=== PATIENT | male | born 1990 | race Caucasian/White ===

== ENCOUNTER 2018-08-22 12:17 | Emergency (ER) | payer OTHER ==
[2018-08-22 12:34] VITALS: RESP 18; BMI 25.3
--- NOTE | 2018-08-22 13:00 | ED PDOC ---
Arrival/HPI - General Chief Complaint: Back Pain Time Seen by Provider: 08/22/18 12:47 Historian: Patient - History of Present Illness Narrative History of Present Illness (Text): 08/22/18 12:58 28 y/o male, no significant pmh, nkda, c/o lower back pain x 1 day. Pt. was lifting heavy box, suddenly feel the pain on the lower back, associated with stiffness, no numbness or tingling, no urinary or bowel incontinence or retention, no other medical or psychological complaints. Past Medical History - Provider Review Nursing Documentation Reviewed: Yes - Psychiatric Hx Substance Use: No Family/Social History - Physician Review Nursing Documentation Reviewed: Yes Family/Social History: Unknown Family HX Smoking Status: Heavy Smoker > 10 Cigarettes Daily Hx Alcohol Use: No Hx Substance Use: No Allergies/Home Meds Allergies/Adverse Reactions: Allergies No Known Allergies Allergy (Verified 08/22/18 12:29) Review of Systems - Review of Systems Constitutional: absent: Fatigue, Fevers Eyes: absent: Vision Changes ENT: absent: Hearing Changes Respiratory: absent: SOB, Cough Cardiovascular: absent: Chest Pain Gastrointestinal: absent: Abdominal Pain, Nausea, Vomiting Musculoskeletal: Back Pain, Myalgias. absent: Arthralgias, Neck Pain, Joint Swelling Skin: absent: Rash, Pruritis Neurological: absent: Headache, Dizziness Psychiatric: absent: Anxiety, Depression Physical Exam Vital Signs Reviewed: Yes Vital Signs Temp Pulse Resp BP Pulse Ox 08/22/18 12:28 97.8 F 98 H 18 110/74 98 Temperature: Afebrile Blood Pressure: Normal Pulse: Regular Respiratory Rate: Normal Appearance: Positive for: Well-Appearing, Non-Toxic Pain Distress: Severe Mental Status: Positive for: Alert and Oriented X 3 - Systems Exam Head: Present: Atraumatic, Normocephalic Pupils: Present: PERRL Extroacular Muscles: Present: EOMI Conjunctiva: Present: Normal Mouth: Present: Moist Mucous Membranes Neck: Present: Normal Range of Motion Respiratory/Chest: Present: Clear to Auscultation, Good Air Exchange. No: Respiratory Distress, Accessory Muscle Use Cardiovascular: Present: Regular Rate and Rhythm, Normal S1, S2. No: Murmurs Abdomen: No: Tenderness, Distention, Peritoneal Signs Back: Present: Normal Inspection, Other (LS spine: +ttp on the rt. paraspinal with no midline tenderness or step off, no rash, FROM without limitation , no saddling gait, sensation intact, motor 5/5, ) Upper Extremity: Present: Normal Inspection. No: Cyanosis, Edema Lower Extremity: Present: Normal Inspection. No: Edema Neurological: Present: GCS=15, CN II-XII Intact, Speech Normal, Motor Func Grossly Intact, Gait Normal, Memory Normal Skin: Present: Warm, Dry, Normal Color. No: Rashes Psychiatric: Present: Alert, Oriented x 3, Normal Insight, Normal Concentration Medical Decision Making ED Course and Treatment: 08/22/18 13:00 -LS spine -toradol and valium -observe and reassess 08/22/18 15:12 -LS spine: Unremarkable radiographs of the lumbar spine. -Pt. feels much better, neurologically intact, walking with normal gait and posture, no focal neurological deficits. -Discharge home with duexeis, flexeril, bed rest, follow up with your own pmd within 2 days, return to the ER for any new or worsening signs or symptoms. - RAD Interpretation Radiology Orders: 08/22/18 12:58 LS SPINE WITH OBL > 18 YRS OLD [RAD] Stat Date of service: 08/22/2018 PROCEDURE: Radiographs of the Lumbar Spine. HISTORY: lower back pain after heavy lifting COMPARISON: No prior. FINDINGS: BONES: Normal alignment. No listhesis. No fracture. DISC SPACES: Unremarkable. OTHER FINDINGS: None. IMPRESSION: Unremarkable radiographs of the lumbar spine. Investigation Division Lieutenant: Radiologist - PA / COSTUMED CHARACTER / Resident Statement MD/DO has reviewed & agrees with the documentation as recorded. Disposition/Present on Arrival - Present on Arrival Any Indicators Present on Arrival: No History of DVT/PE: No History of Uncontrolled Diabetes: No Urinary Catheter: No History of Decub. Ulcer: No History Surgical Site Infection Following: None - Disposition Have Diagnosis and Disposition been Completed?: Yes Diagnosis: Low back pain, Back injury Disposition: HOME/ ROUTINE Disposition Time: 15:13 Patient Plan: Discharge Condition: IMPROVED Additional Instructions: -Discharge home with duexeis, flexeril, bed rest, follow up with your own pmd within 2 days, return to the ER for any new or worsening signs or symptoms. Prescriptions: Cyclobenzaprine [Cyclobenzaprine HCl] 10 mg PO TID PRN #21 tab PRN Reason: Other Ibuprofen/Famotidine [Duexis 26.6 mg-800 mg] 1 tab PO TID PRN #21 tab PRN Reason: Other Referrals: FAMILY PROVIDER,NO [Primary Care Provider] - Follow up with primary [facility] [place] [Outside] - Follow up with primary Carroll Roman MD [Staff Provider] - Follow up with primary Forms: [facility] (Bel[place]ian), WORK NOTE
--- NOTE | 2018-08-22 14:38 | RAD ---
Date of service: 08/22/2018 PROCEDURE: Radiographs of the Lumbar Spine. HISTORY: lower back pain after heavy lifting COMPARISON: No prior. FINDINGS: BONES: Normal alignment. No listhesis. No fracture. DISC SPACES: Unremarkable. OTHER FINDINGS: None. IMPRESSION: Unremarkable radiographs of the lumbar spine.
[2018-08-22 15:13] VITALS: BP 100/66; PULSE 68; TEMP 98.3; O2SAT 96
== END 2018-08-22 15:19 | disposition home or self-care (01) ==
LOC: ED 12:17
DX: M54.5 Low back pain (principal); S39.92XA Unspecified injury of lower back, initial encounter; X50.0XXA Overexertion from strenuous movement or load, initial encounter; F17.210 Nicotine dependence, cigarettes, uncomplicated
CPT/HCPCS: 72110; 96372; 99283; J1885